=== PATIENT | female | born 1995 | race American Indian/Alaskan Native ===

== ENCOUNTER 2020-11-09 00:11 | Emergency (ER) | payer SELFPAY ==
[2020-11-09] MEDS ORDERED: ACETAMINOPHEN 500 MG TAB ONE (04:22)
[2020-11-09] MEDS ORDERED: ACETAMINOPHEN 500 MG TAB PO ONE (04:22)
[2020-11-09] MEDS ORDERED: TETANUS,DIPH,PERTUSS(ACELL) VACCINE 0.5 ML SYRINGE IM ONE (04:25)
--- NOTE | 2020-11-09 05:15 | Cat Scan Report ---
CT head/brain wo con INDICATION: head injury. TECHNIQUE: All CT scans at this location are performed using CT dose reduction for ALARA by means of automated e xposure control. COMPARISON: None available. FINDINGS: Visualized paranasal sinuses are clear. No cranial fracture. Extracranial soft tissue swelling in the left frontal region. Ventricles are symmetrical and normal in size. Motion artifact obscures some detail, but I see no int racranial or subdural hemorrhage. No mass effect. IMPRESSION: 1. No significant intracranial abnormality. Signer Name: Lorenzo Carpenter MD Signed: 11/09/2020 5:11 AM Workstation Name: [id number]
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
--- NOTE | 2020-11-09 05:19 | Cat Scan Report ---
CT cervical spine wo con INDICATION: head injury. TECHNIQUE: All CT scans at this location are performed using CT dose reduction for ALARA by means of automated e xposure control. COMPARISON: None available. FINDINGS: Patient was apparently unable to lie within a straight. No fracture or subluxation. IMPRESSION: 1. Negative study. Signer Name: Lorenzo Carpenter MD Signed: 11/09/2020 5:14 AM Workstation Name: [id number]
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
[2020-11-09 05:57] VITALS: BP 124/73
== END 2020-11-09 05:55 | disposition home or self-care (01) ==
LOC: ED 00:11
DX: S01.81XA Laceration without foreign body of other part of head, initial encounter (principal); Z79.899 Other long term (current) drug therapy; Y04.8XXA Assault by other bodily force, initial encounter; Y93.89 Activity, other specified; Y92.009 Unspecified place in unspecified non-institutional (private) residence as the place of occurrence of the external cause; Y99.8 Other external cause status
CPT/HCPCS: 70450; 70486; 72125; 90471